=== PATIENT | male | born 1950 | race Caucasian/White ===

== ENCOUNTER 2017-12-24 00:16 | Emergency (ER) | payer MEDICARE ==
[~2017-12-24] VITALS: Ht 175.3 cm; Wt 93.4 kg
[2017-12-24] MEDS ORDERED: LIDOCAINE-MPF 1%, 2ML ONE (00:47)
[2017-12-24] MEDS ORDERED: LIDOCAINE-MPF 1%, 5ML INFIL ONE (01:00)
[2017-12-24] MEDS ORDERED: BACITRACIN ZINC OINT 500U/GM, 0.9 GM ONE (01:32)
[2017-12-24 02:11] VITALS: BP 137/92
== END 2017-12-24 02:31 | disposition home or self-care (01) ==
LOC: ED 02:25
DX: S52.572A Other intraarticular fracture of lower end of left radius, initial encounter for closed fracture (principal); S61.213A Laceration without foreign body of left middle finger without damage to nail, initial encounter; S09.90XA Unspecified injury of head, initial encounter; W01.0XXA Fall on same level from slipping, tripping and stumbling without subsequent striking against object, initial encounter; Y93.89 Activity, other specified; Y92.099 Unspecified place in other non-institutional residence as the place of occurrence of the external cause; Y99.8 Other external cause status
CPT/HCPCS: 12042; 29125; 99285